=== PATIENT | female | born 1940 | race Caucasian/White ===

== ENCOUNTER 2016-05-25 13:00 | Outpatient (RCR) | payer OTHER ==
[2016-06-07] MEDS ORDERED: IBUPROFEN600 MG ORAL (08:39)
[2016-06-07] MEDS ORDERED: VITAMIN B-1100 MG ORAL (08:39)
[2016-06-07] MEDS ORDERED: [UNRECOGNIZED DRUG - OTHER] PO (08:39)
[2016-06-07] MEDS ORDERED: VITAMIN D1000 UNI1 ORAL (08:39)
[2016-06-07] MEDS ORDERED: VITAMIN C500 M1 ORAL (08:39)
[2016-06-07] MEDS ORDERED: TRAMADOL HCL50 MG ORAL (08:39)
[2016-06-07] MEDS ORDERED: NEURONTIN400 MG ORAL (08:39)
== END 2016-05-30 | disposition home or self-care (01) ==
LOC: PTY 13:00
DX: M75.81 Other shoulder lesions, right shoulder (principal); M75.01 Adhesive capsulitis of right shoulder
CPT/HCPCS: 97140; 97162; G0283

== ENCOUNTER → 2016-06-07 | Day surgery (SDC) | payer OTHER ==
[~2016-06-07] VITALS: Ht 170.2 cm; Wt 77.1 kg
[2016-06-07] VITALS (9 sets, daily range): BP systolic 110–130; BP diastolic 61–71
[~2016-06-07] MED LIST: Akten 3.5% 1ml Btl LEFT EYE SCH; Akten 3.5% 1ml Btl ONE; BSS 15ml BTL ONE; BSS 500ml btl ONE; Dexamethasone 4mg/ml vial ONE; Diclofenac Sod 0.1% Op Soln LEFT EYE SCH; Diclofenac Sod 0.1% Op Soln ONE; EPINEPHrine 1mg/1ml Amp ONE; Gatifloxacin Opth Solution 0.5% LEFT EYE SCH; Gatifloxacin Opth Solution 0.5% ONE; IBUPROFEN600 MG ORAL; LR 1000ml ONE; Lidocaine 1% MPF 10mg/ml 5ml ONE; Midazolam 2mg/2ml Inj ONE; NEURONTIN400 MG ORAL; NS Irrig 1000ml ONE; Phenylephrine 2.5% Op Soln LEFT EYE SCH; Phenylephrine 2.5% Op Soln ONE; Povidone-Iodine 5% opth solution ONE; Sodium Hyaluronate 14 mg/ml 0.85ml ONE; Sterile Water Irrig 1000ml IRRIG ONE; TRAMADOL HCL50 MG ORAL; Tobradex Opth Susp 2.5ml LEFT EYE SCH; Tobradex Opth Susp 2.5ml ONE; Tropicamide 1% Opth Soln LEFT EYE SCH; Tropicamide 1% Opth Soln ONE; VITAMIN B-1100 MG ORAL; VITAMIN C500 M1 ORAL; VITAMIN D1000 UNI1 ORAL; [UNRECOGNIZED DRUG - OTHER] PO
--- NOTE | 2016-06-07 07:41 | Pre-Procedure Note/Attestation ---
Pre-Procedure Note/Attestation Complete Prior to Procedure Planned Procedure: left Procedure Narrative: cataract extraction with implant left eye Indications for Procedure Pre-Operative Diagnosis: cataract left eye Attestation I attest that I discussed the nature of the procedure; its benefits; risks and complications; and alternatives (and the risks and benefits of such alternatives ), prior to the procedure, with the patient (or the patient's legal sales representative publications). I attest that, if there was a reasonable possibility of needing a blood transfusion, the patient (or the patient's legal sales representative publications) was given the [facility] standardized written summary, pursuant to the Clive [place] Blood Safety Act ([place] Health and Safety Code # 1645, as amended). I attest that I re-evaluated the patient just prior to the surgery and that there has been no change in the patient's H&P, except as documented below: ALESSANDRO HUFF Jun 07, 2016 07:41
--- NOTE | 2016-06-07 10:44 | Brief Operative Note ---
Immediate Post Operative Note Operative Note Pre-op Diagnosis: cataract left eye Procedure: phacoemulsification of cataract with implant left eye Post-op Diagnosis: same as pre-op Surgeon: alessandro negro Furniture Technician: none Anesthesiologist: arslan drummond Anesthesia: MAC Specimen: none Complications: none Condition: stable Estimated Blood Loss: none Drains: none Implant(s) used?: Yes ALESSANDRO NEGRO Jun 07, 2016 10:44
--- NOTE | 2016-06-07 10:59 | Immediate Post-Op Evaluation ---
Immediate Post-Op Evalulation Immediate Post-Op Evalulation Procedure: cataract extraction left eye Date of Evaluation: Jun 07, 2016 Time of Evaluation: 10:45 IV Fluids: 200 Blood Pressure Systolic: 125 Blood Pressure Diastolic: 65 Pulse Rate: 62 Respiratory Rate: 14 O2 Sat by Pulse Oximetry: 98 Temperature (Fahrenheit): 98.4 Nausea: No Vomiting: No Complications none Patient Status: awake, patent Hydration Status: adequate Drug: none CAROL NATHAN CRNA Jun 07, 2016 10:58
--- NOTE | 2016-06-07 11:00 | Anethesia Preoperative Eval ---
Anesthesia Pre-op PMH/ROS General Date of Evaluation: Jun 07, 2016 Time of Evaluation: 10:15 Anesthesiologist: bhanu ASA Score: ASA 2 Mallampati Score Class I : Soft palate, uvula, fauces, pillars visible Class II: Soft palate, uvula, fauces visible Class III: Soft palate, base of uvula visible Class IV: Only hard plate visible Mallampati Classification: Class II Surgeon: marky Diagnosis: cataract Surgical Procedure: cataract extraction Anesthesia History: none Family History: no anesthesia problems Allergies: Coded Allergies: Protein Milk (Verified Adverse Reaction, Severe, Severe joint pain , ) Medications: see eMAR Past Medical History Cardiovascular: Denies: CAD, HTN, [place], arrhythmia, other, valve dz Pulmonary: Denies: COPD, VERENA, asthma, other Gastrointestinal/Genitourinary: Denies: CRI, ESRD, GERD, other Neurologic/Psychiatric: Reports: depression/anxiety Endocrine: Denies: DM, hypothyroidism, other, steroids HEENT: Reports: cataract (L) Hematology/Immune: Denies: DVT, anemia, bleeding disorder, other Musculoskeletal/Integumentary: Denies: DDD, DJD, OA, RA, edema, other PSxH Narrative: breast surgery Anesthesia Pre-op Phys. Exam Physician Exam Last Vital Signs Date Time Temp Pulse Resp B/P Pulse Ox O2 Delivery O2 Flow Rate FiO2 06/07/16 10:44 98.4 61 14 113/67 99 Room Air Constitutional: NAD Neurologic: CN 2-12 intact Cardiovascular: RRR Respiratory: CTA Airway Exam Mallampati Classification 2 Mallampati Score: Class II MO: full ROM: full Dentures: no lower, no upper Anesthesia Pre-op A/P Studies Pre-op Studies: EKG - sr Risk Assessment & Plan Plan: mac Status Change Before Surgery: No Pre-Antibiotics Drug: none CAROL NATHAN CRNA Jun 07, 2016 11:00
--- NOTE | 2016-06-07 11:05 | 48 Hour Post Anesthesia Eval ---
Post Anesthesia Evaluation Procedure: cataract extraction left eye Date of Evaluation: Jun 07, 2016 Time of Evaluation: 11:04 Blood Pressure Systolic: 125 0: 60 Pulse Rate: 62 Respiratory Rate: 14 O2 Sat by Pulse Oximetry: 98 Airway: patent Nausea: No Vomiting: No Hydration Status: adequate Cardiopulmonary Status: wnl Mental Status/LOC: patient returned to baseline Post-Anesthesia Complications: none Follow-up care needed: N/A CAROL NATHAN CRNA Jun 07, 2016 11:05
--- NOTE | 2016-06-07 15:17 | Operative Note - Dictated ---
DATE OF OPERATION: 06/07/2016 PREOPERATIVE DIAGNOSIS: Cataract, left eye. POSTOPERATIVE DIAGNOSIS: Cataract, left eye. PROCEDURE: Phacoemulsification of cataract, left eye, with placement of posterior chamber intraocular lens. SURGEON: Dalton [place] M.[place]. [place] [place] THERAPEUTIC CASE MANAGER: None. ANESTHESIA: MAC/topical. DRUG AND ALCOHOL TREATMENT SPECIALIST: Lizabeth Vail C.R.N.A. INDICATION FOR PROCEDURE: Poor vision, left eye. DESCRIPTION OF FINDINGS: Dense nuclear sclerotic cataract, left eye. DESCRIPTION OF PROCEDURE: The patient received a topical anesthetic block consisting of 3.5% Akten eye drops. The eye was then prepped and draped in the usual manner. A lid speculum was placed. An operating Zeiss microscope was positioned. A temporal corneal groove was made with a diony blade. A SuperSharp blade made a stab incision at the 6 o'clock position. A 0.1 mL of 1% nonpreserved intracameral lidocaine was injected. Healon was instilled into the anterior chamber and a 2.5/2.8 mm trapezoidal diony blade was used to complete a temporal corneal wound. A cystotome was used to create an anterior capsular flap. Utrata forceps were used to complete the capsulorrhexis. BSS on a cannula was used to hydrodissect the nucleus. The lens nucleus was phacoemulsified in a phaco-fracture technique. Remaining cortical material removed with the I/A and the posterior capsule was polished with the I/A on Cap vac. Healon was then instilled in a capsular bag and the anterior chamber, and Abbot foldable one-piece posterior chamber intraocular lens, model ZCB00, power 24.0 diopter, serial #[id number], was placed in the injector. The lens was put in the capsular bag. The I/A tip was used to remove the Healon and position the lens. The wound edge was hydrated with BSS and a blunt-tipped cannula. The wound was checked and found to be watertight. The lid speculum was removed and a drop of TobraDex and Zymaxid was placed. A clear plastic shield was taped over the eye. The patient tolerated the procedure well and left the operating room in good condition. Dalton Angeles M.D. ([facility]) DR: BROCK JOB#: [id number] CC: Meagan Lowry M.D.
== END | disposition home or self-care (01) ==
LOC: SUR 07:34
DX: H25.12 Age-related nuclear cataract, left eye (principal); E11.319 Type 2 diabetes mellitus with unspecified diabetic retinopathy without macular edema; E11.22 Type 2 diabetes mellitus with diabetic chronic kidney disease; I12.0 Hypertensive chronic kidney disease with stage 5 chronic kidney disease or end stage renal disease; N18.5 Chronic kidney disease, stage 5; D63.1 Anemia in chronic kidney disease; N25.81 Secondary hyperparathyroidism of renal origin; F25.9 Schizoaffective disorder, unspecified; F32.9 Major depressive disorder, single episode, unspecified; F41.9 Anxiety disorder, unspecified; E78.5 Hyperlipidemia, unspecified; L30.9 Dermatitis, unspecified; L80 Vitiligo; Z91.011 Allergy to milk products; Z87.891 Personal history of nicotine dependence
CPT/HCPCS: 66984; J0171; J1100; J2250; J7120; V2632; 94003; 94150

== ENCOUNTER 2016-06-15 14:45 | Outpatient (RCR) | payer OTHER ==
--- NOTE | 2016-06-07 10:40 | Anethesia Preoperative Eval ---
Anesthesia Pre-op PMH/ROS General Date of Evaluation: Jun 07, 2016 Time of Evaluation: 10:15 Anesthesiologist: bhanu ASA Score: ASA 2 Mallampati Score Class I : Soft palate, uvula, fauces, pillars visible Class II: Soft palate, uvula, fauces visible Class III: Soft palate, base of uvula visible Class IV: Only hard plate visible Mallampati Classification: Class II Surgeon: marky Diagnosis: cataract Surgical Procedure: cataract extraction left eye Anesthesia History: none Family History: no anesthesia problems Allergies: Coded Allergies: Protein Milk (Verified Adverse Reaction, Severe, Severe joint pain , ) Medications: see eMAR Past Medical History Cardiovascular: Denies: CAD, HTN, [place], arrhythmia, other, valve dz Pulmonary: Denies: COPD, VERENA, asthma, other Neurologic/Psychiatric: Reports: depression/anxiety Endocrine: Denies: DM, hypothyroidism, other, steroids HEENT: Reports: cataract (L) Hematology/Immune: Denies: DVT, anemia, bleeding disorder, other Musculoskeletal/Integumentary: Reports: DDD PSxH Narrative: breast surgery Anesthesia Pre-op Phys. Exam Physician Exam 113/57 hr 58 Constitutional: NAD Neurologic: CN 2-12 intact Cardiovascular: RRR Respiratory: CTA Gastrointestinal: S/NT/ND Airway Exam Mallampati Classification 2 Mallampati Score: Class II MO: full ROM: full Dentures: no lower, no upper Anesthesia Pre-op A/P Studies Pre-op Studies: EKG - sr Risk Assessment & Plan Plan: mac Status Change Before Surgery: No Pre-Antibiotics Drug: none CAROL NATHAN CRNA Jun 07, 2016 10:40
[2016-06-07 10:55] VITALS: BP 125/85
--- NOTE | 2016-06-07 10:55 | Immediate Post-Op Evaluation ---
Immediate Post-Op Evalulation Immediate Post-Op Evalulation Procedure: cataract extraction left eye Date of Evaluation: Jun 07, 2016 Time of Evaluation: 10:45 IV Fluids: 200 Blood Pressure Systolic: 125 Blood Pressure Diastolic: 85 Pulse Rate: 74 Respiratory Rate: 14 O2 Sat by Pulse Oximetry: 98 Temperature (Fahrenheit): 98.4 Nausea: No Vomiting: No Complications none Patient Status: awake, patent Hydration Status: adequate Drug: none CAROL NATHAN CRNA Jun 07, 2016 10:55
[~2016-06-15 14:45] MED LIST changes: -Akten 3.5% 1ml Btl LEFT EYE SCH; -BSS 15ml BTL ONE; -BSS 500ml btl ONE; -Dexamethasone 4mg/ml vial ONE; -Diclofenac Sod 0.1% Op Soln LEFT EYE SCH; -EPINEPHrine 1mg/1ml Amp ONE; -Gatifloxacin Opth Solution 0.5% LEFT EYE SCH; -LR 1000ml ONE; -Lidocaine 1% MPF 10mg/ml 5ml ONE; -Midazolam 2mg/2ml Inj ONE; -NS Irrig 1000ml ONE; -Phenylephrine 2.5% Op Soln LEFT EYE SCH; -Povidone-Iodine 5% opth solution ONE; -Sodium Hyaluronate 14 mg/ml 0.85ml ONE; -Sterile Water Irrig 1000ml IRRIG ONE; -Tobradex Opth Susp 2.5ml LEFT EYE SCH; -Tropicamide 1% Opth Soln LEFT EYE SCH
== END 2016-06-27 | disposition home or self-care (01) ==
LOC: PTY 14:45
DX: M70.61 Trochanteric bursitis, right hip (principal); M75.81 Other shoulder lesions, right shoulder; M75.01 Adhesive capsulitis of right shoulder
CPT/HCPCS: 97110; 97140; G0283

== ENCOUNTER 2016-07-03 15:30 | Outpatient (RCR) | payer OTHER ==
[2016-06-07 10:55] VITALS: BP 125/85
[~2016-07-03 15:30] MED LIST changes: -Akten 3.5% 1ml Btl ONE; -Diclofenac Sod 0.1% Op Soln ONE; -Gatifloxacin Opth Solution 0.5% ONE; -Phenylephrine 2.5% Op Soln ONE; -Tobradex Opth Susp 2.5ml ONE; -Tropicamide 1% Opth Soln ONE
== END 2016-07-28 | disposition home or self-care (01) ==
LOC: PTY 15:30
DX: M75.81 Other shoulder lesions, right shoulder (principal); M75.01 Adhesive capsulitis of right shoulder
CPT/HCPCS: 97035; 97110; 97140; G0283

== ENCOUNTER 2016-08-01 15:00 | Outpatient (RCR) | payer OTHER ==
[2016-06-07 10:55] VITALS: BP 125/85
== END 2016-08-27 | disposition home or self-care (01) ==
LOC: PTY 15:00
DX: M75.81 Other shoulder lesions, right shoulder (principal); M75.01 Adhesive capsulitis of right shoulder
CPT/HCPCS: 97035; 97110; 97140; G0283

== ENCOUNTER 2016-08-31 12:15 | Outpatient (RCR) | payer OTHER ==
[2016-06-07 10:55] VITALS: BP 125/85
== END 2016-09-27 | disposition home or self-care (01) ==
LOC: PTY 12:15
DX: M75.01 Adhesive capsulitis of right shoulder (principal); M70.61 Trochanteric bursitis, right hip; M75.81 Other shoulder lesions, right shoulder
CPT/HCPCS: 97110; 97140; G0283

== ENCOUNTER 2016-09-13 05:26 | Day surgery (SDC) | payer OTHER ==
[~2016-09-13] VITALS: Ht 170.2 cm; Wt 75.3 kg
[2016-09-13] VITALS (9 sets, daily range): BP systolic 109–139; BP diastolic 57–86
[2016-09-13] MEDS ORDERED: Midazolam 2mg/2ml Inj ONE (05:27)
[2016-09-13] MEDS ORDERED: LR 1000ml ONE (05:27)
[2016-09-13] MEDS ORDERED: fentaNYL 100 mcg/2 mL IV ONE (05:27)
[2016-09-13] MEDS ORDERED: Diclofenac Sod 0.1% Op Soln ONE (05:42)
[2016-09-13] MEDS ORDERED: Gatifloxacin Opth Solution 0.5% ONE (05:42)
[2016-09-13] MEDS ORDERED: Akten 3.5% 1ml Btl ONE (05:43)
[2016-09-13] MEDS ORDERED: Tropicamide 1% Opth Soln ONE (05:43)
[2016-09-13] MEDS ORDERED: Tobradex Opth Susp 2.5ml ONE (05:43)
[2016-09-13] MEDS ORDERED: Phenylephrine 2.5% Op Soln ONE (05:43)
[2016-09-13] MEDS: Akten 3.5% 1ml Btl RIGHT EYE SCH ×3 (05:57→06:26)
[2016-09-13] MEDS: Diclofenac Sod 0.1% Op Soln RIGHT EYE SCH ×3 (05:57→06:26)
[2016-09-13] MEDS: Tobradex Opth Susp 2.5ml RIGHT EYE SCH ×3 (05:58→06:26)
[2016-09-13] MEDS: Gatifloxacin Opth Solution 0.5% RIGHT EYE SCH ×3 (05:58→06:26)
[2016-09-13] MEDS: Phenylephrine 2.5% Op Soln RIGHT EYE SCH ×3 (05:58→06:26)
[2016-09-13] MEDS: Tropicamide 1% Opth Soln RIGHT EYE SCH ×3 (05:58→06:26)
[2016-09-13] MEDS ORDERED: LR 1000ml 1,000 ML IV SCH (06:20)
[2016-09-13] MEDS ORDERED: BSS 500ml btl ONE (07:22)
[2016-09-13] MEDS ORDERED: Dexamethasone 4mg/ml vial ONE (07:22)
[2016-09-13] MEDS ORDERED: Lidocaine 1% MPF 10mg/ml 5ml ONE (07:22)
[2016-09-13] MEDS ORDERED: BSS 15ml BTL ONE (07:23)
[2016-09-13] MEDS ORDERED: Sodium Hyaluronate 14 mg/ml 0.85ml ONE (07:23)
[2016-09-13] MEDS ORDERED: EPINEPHrine 1mg/1ml Amp ONE (07:23)
[2016-09-13] MEDS ORDERED: Povidone-Iodine 5% opth solution ONE (07:23)
[2016-09-13] MEDS ORDERED: fentaNYL 100 mcg/2 mL IV PRN (07:30)
--- NOTE | 2016-09-13 07:37 | Pre-Procedure Note/Attestation ---
Pre-Procedure Note/Attestation Complete Prior to Procedure Planned Procedure: right Procedure Narrative: cataract extraction with implant right eye Indications for Procedure Pre-Operative Diagnosis: cataract right eye Attestation I attest that I discussed the nature of the procedure; its benefits; risks and complications; and alternatives (and the risks and benefits of such alternatives ), prior to the procedure, with the patient (or the patient's legal telemarketing representative). I attest that, if there was a reasonable possibility of needing a blood transfusion, the patient (or the patient's legal telemarketing representative) was given the [facility] standardized written summary, pursuant to the Clive [place] Blood Safety Act ([place] Health and Safety Code # 1645, as amended). I attest that I re-evaluated the patient just prior to the surgery and that there has been no change in the patient's H&P, except as documented below: ALESSANDRO HUFF September 13, 2016 07:37
--- NOTE | 2016-09-13 08:00 | Anethesia Preoperative Eval ---
Anesthesia Pre-op PMH/ROS General Date of Evaluation: September 13, 2016 Time of Evaluation: 07:59 Anesthesiologist: bhanu ASA Score: ASA 2 Mallampati Score Class I : Soft palate, uvula, fauces, pillars visible Class II: Soft palate, uvula, fauces visible Class III: Soft palate, base of uvula visible Class IV: Only hard plate visible Mallampati Classification: Class II Surgeon: marky Diagnosis: cataract Surgical Procedure: cataract extraction Anesthesia History: none Family History: no anesthesia problems Allergies: Coded Allergies: Protein Milk (Verified Adverse Reaction, Severe, Severe joint pain , ) Medications: see eMAR Past Medical History Cardiovascular: Denies: CAD, HTN, [place], arrhythmia, other, valve dz Pulmonary: Denies: COPD, VERENA, asthma, other Gastrointestinal/Genitourinary: Denies: CRI, ESRD, GERD, other Neurologic/Psychiatric: Denies: CVA, TIA, dementia, depression/anxiety, other HEENT: Reports: cataract (R) Hematology/Immune: Denies: DVT, anemia, bleeding disorder, other Other: obesity PSxH Narrative: laparoscopy Anesthesia Pre-op Phys. Exam Physician Exam Last Vital Signs Date Time Temp Pulse Resp B/P Pulse Ox O2 Delivery O2 Flow Rate FiO2 09/13/16 06:11 98.4 60 20 109/57 95 Room Air Constitutional: NAD Neurologic: CN 2-12 intact Cardiovascular: RRR Respiratory: CTA Gastrointestinal: S/NT/ND Airway Exam Mallampati Classification 2 Mallampati Score: Class II MO: full Neck: thick ROM: full Dentures: no lower, no upper Anesthesia Pre-op A/P Studies Pre-op Studies: EKG - sr Risk Assessment & Plan Plan: mac Status Change Before Surgery: No Pre-Antibiotics Drug: none TARRILLION,CAROL AIR BAG BUILDER September 13, 2016 08:00
--- NOTE | 2016-09-13 08:12 | Brief Operative Note ---
Immediate Post Operative Note Operative Note Pre-op Diagnosis: cataract right eye Procedure: phacoemulsification of cataract with implant right eye Post-op Diagnosis: same as pre-op Surgeon: alessandro negro Beading Sawyer: blossom baez Additional Surgeons: none Anesthesiologist: arslan drummond crna Anesthesia: MAC Specimen: none Complications: none Condition: stable Estimated Blood Loss: none Drains: none Implant(s) used?: Yes ALESSANDRO NEGRO September 13, 2016 08:12
--- NOTE | 2016-09-13 08:32 | Immediate Post-Op Evaluation ---
Immediate Post-Op Evalulation Immediate Post-Op Evalulation Procedure: cataract extraction rigth eye Date of Evaluation: September 13, 2016 Time of Evaluation: 08:18 IV Fluids: 400 Blood Pressure Systolic: 142 Blood Pressure Diastolic: 65 Pulse Rate: 70 Respiratory Rate: 14 O2 Sat by Pulse Oximetry: 100 Temperature (Fahrenheit): 98.0 Nausea: No Vomiting: No Complications none Patient Status: patent Hydration Status: adequate Drug: none EVELIARICAROL NORMAN CRNA September 13, 2016 08:32
--- NOTE | 2016-09-13 09:07 | 48 Hour Post Anesthesia Eval ---
Post Anesthesia Evaluation Procedure: cataract extraction rig eye Date of Evaluation: September 13, 2016 Time of Evaluation: 09:07 Blood Pressure Systolic: 140 0: 75 Pulse Rate: 78 Respiratory Rate: 15 Airway: patent Nausea: No Vomiting: No Hydration Status: adequate Mental Status/LOC: patient returned to baseline Post-Anesthesia Complications: none Follow-up care needed: N/A CAROL NATHAN CRNA September 13, 2016 09:07
--- NOTE | 2016-09-13 14:41 | Operative Note - Dictated ---
DATE OF OPERATION: 09/13/2016 PREOPERATIVE DIAGNOSIS: Cataract, right eye. POSTOPERATIVE DIAGNOSIS: Cataract, right eye. PROCEDURE: Phacoemulsification cataract right eye with placement of posterior intraocular lens. SURGEON: Dalton Angeles M.D. SHRIMPING BOAT CAPTAIN: Nick Au M.D. ANESTHESIA: MAC/topical. ANESTHESIOLOGIST: Lizabeth Vail C.R.N.A. INDICATION FOR PROCEDURE: Poor vision, right eye. DESCRIPTION OF FINDINGS: Dense nuclear sclerotic cataract, right eye. DESCRIPTION OF PROCEDURE: The patient received a topical anesthetic block consisting of 3.5% Akten eye drops. The eye was then prepped and draped in usual manner. A lid speculum was placed. An operating Zeiss microscope was positioned. A temporal corneal groove was made with the diony blade. A SuperSharp blade made a stab incision at the 12 o'clock position. A 0.1 mL of 1% nonpreserved intracameral lidocaine was injected. Healon was instilled into the anterior chamber and a 2.5/2.8 mm trapezoidal diony blade was used to complete the temporal corneal wound. A cystotome was used to create an anterior capsular flap. Utrata forceps were used to complete the capsulorrhexis. BSS on a cannula was used to hydrodissect the nucleus. The lens nucleus phacoemulsified in a phaco-fracture technique. Remaining cortical material was removed with the I/A and the posterior capsule polished with the I/A on Cap vac. Healon was instilled in the capsular bag and anterior chamber, and an Andrade foldable one-piece posterior chamber intraocular lens, model ZCB00, power 22.5 diopter, serial #[id number] was placed in the injector. The lens was put in the capsular bag. The I/A tip was used to remove the Healon and position the lens. The wound edge was hydrated with BSS and a blunt-tipped cannula. The wound was checked and found to be watertight. The lid speculum was removed and a drop of TobraDex and Zymaxid was placed. A clear plastic shield was taped over the eye. The patient tolerated well and left the operating room in good condition. . Dalton Angeles M.D. ([facility]) DR: Rosa JOB#: [id number] CC: Dr. Nick WILLIS
== END 2016-09-13 09:30 | disposition home or self-care (01) ==
LOC: SUR 05:26
DX: H25.11 Age-related nuclear cataract, right eye (principal); M54.16 Radiculopathy, lumbar region; M54.30 Sciatica, unspecified side; F43.10 Post-traumatic stress disorder, unspecified; F25.9 Schizoaffective disorder, unspecified; F32.9 Major depressive disorder, single episode, unspecified; M85.80 Other specified disorders of bone density and structure, unspecified site; M51.36 Other intervertebral disc degeneration, lumbar region; E78.5 Hyperlipidemia, unspecified; G47.00 Insomnia, unspecified; H35.30 Unspecified macular degeneration; G62.9 Polyneuropathy, unspecified; G89.29 Other chronic pain; M25.569 Pain in unspecified knee; M54.2 Cervicalgia; E66.9 Obesity, unspecified; Z91.011 Allergy to milk products
CPT/HCPCS: 94003; 94150; J2250

== ENCOUNTER 2016-09-21 15:00 | Outpatient (RCR) | payer OTHER | END 2016-09-27 | disposition home or self-care (01) | LOC: PTY 15:00 | PROVIDERS: ATTEND Internal Medicine | DX: M54.16 Radiculopathy, lumbar region (principal); M17.11 Unilateral primary osteoarthritis, right knee; M70.61 Trochanteric bursitis, right hip; M75.81 Other shoulder lesions, right shoulder; M75.01 Adhesive capsulitis of right shoulder | CPT/HCPCS: 97110; 97140; 97162; G0283 ==

== ENCOUNTER 2016-09-28 14:30 | Outpatient (RCR) | payer OTHER ==
[2016-06-07 10:55] VITALS: BP 125/85
== END 2016-10-27 | disposition home or self-care (01) ==
LOC: PTY 14:30
DX: M75.81 Other shoulder lesions, right shoulder (principal); M70.61 Trochanteric bursitis, right hip; M54.16 Radiculopathy, lumbar region; M25.561 Pain in right knee; M81.0 Age-related osteoporosis without current pathological fracture; G62.9 Polyneuropathy, unspecified
CPT/HCPCS: 97035; 97110; 97140; G0283

== ENCOUNTER 2016-11-02 14:00 | Outpatient (RCR) | payer OTHER ==
[2016-06-07 10:55] VITALS: BP 125/85
== END 2016-11-27 | disposition home or self-care (01) ==
LOC: PTY 14:00
DX: M75.81 Other shoulder lesions, right shoulder (principal); M54.16 Radiculopathy, lumbar region; M25.561 Pain in right knee
CPT/HCPCS: 97110; 97140; G0283

== ENCOUNTER 2016-12-26 14:33 | Outpatient (RCR) | payer OTHER ==
[2016-06-07 10:55] VITALS: BP 125/85
== END 2016-12-28 | disposition home or self-care (01) ==
LOC: PTY 14:33
DX: M75.81 Other shoulder lesions, right shoulder (principal); M70.61 Trochanteric bursitis, right hip; M54.16 Radiculopathy, lumbar region; M25.561 Pain in right knee; M81.0 Age-related osteoporosis without current pathological fracture; G62.9 Polyneuropathy, unspecified
CPT/HCPCS: 97110; 97140; G0283

== ENCOUNTER 2017-01-03 08:08 | Outpatient (RCR) | payer OTHER ==
[2016-06-07 10:55] VITALS: BP 125/85
== END 2017-01-27 | disposition home or self-care (01) ==
LOC: PTY 08:08
DX: M54.16 Radiculopathy, lumbar region (principal); M25.561 Pain in right knee
CPT/HCPCS: 97110; 97140; G0283

== ENCOUNTER 2017-02-19 15:42 | Outpatient (RCR) | payer OTHER ==
[2016-06-07 10:55] VITALS: BP 125/85
== END 2017-02-27 | disposition home or self-care (01) ==
LOC: PTY 15:42
DX: M54.16 Radiculopathy, lumbar region (principal); M25.561 Pain in right knee
CPT/HCPCS: 97110; 97140; G0283

== ENCOUNTER 2017-03-01 04:00 | Outpatient (RCR) | payer OTHER ==
[2016-06-07 10:55] VITALS: BP 125/85
== END 2017-03-29 | disposition home or self-care (01) ==
LOC: PTY 04:00
DX: M54.16 Radiculopathy, lumbar region (principal); M25.561 Pain in right knee
CPT/HCPCS: 97110; 97140; G0283

== ENCOUNTER 2017-04-16 13:10 | Outpatient (RCR) | payer OTHER ==
[2016-06-07 10:55] VITALS: BP 125/85
== END 2017-04-29 | disposition home or self-care (01) ==
LOC: PTY 13:10
DX: M54.16 Radiculopathy, lumbar region (principal); M25.561 Pain in right knee
CPT/HCPCS: 97110; 97140; G0283

== ENCOUNTER 2017-06-07 03:45 | Outpatient (RCR) | payer OTHER ==
[2016-06-07 10:55] VITALS: BP 125/85
== END 2017-06-27 | disposition home or self-care (01) ==
LOC: PTY 03:45
DX: M54.16 Radiculopathy, lumbar region (principal); M25.561 Pain in right knee
CPT/HCPCS: 97110; 97140; G0283

== ENCOUNTER 2017-07-03 15:15 | Outpatient (RCR) | payer OTHER ==
[2016-06-07 10:55] VITALS: BP 125/85
== END 2017-07-28 | disposition home or self-care (01) ==
LOC: PTY 15:15
DX: M54.16 Radiculopathy, lumbar region (principal); M25.561 Pain in right knee
CPT/HCPCS: 97110; 97140; G0283